=== PATIENT | female | born 1975 | race African-American/Black ===

== ENCOUNTER 2017-10-12 20:24 | Emergency (ER) | payer OTHER ==
[~2017-10-12] VITALS: Ht 154.9 cm; Wt 77.3 kg
[2017-10-12 20:27] VITALS: TEMP 98
[2017-10-12] MEDS ORDERED: EPIPEN 2-PAK1 MG/ML IM (21:44)
[2017-10-12] MEDS ORDERED: PREDNISONE20 MG PO (21:44)
[2017-10-12 23:00] VITALS: BP 150/91; PULSE 88
== END 2017-10-12 23:04 | disposition home or self-care (01) ==
LOC: COL.ER 20:24
DX: L50.9 Urticaria, unspecified (principal)
CPT/HCPCS: J1200; J2930; J7030